=== PATIENT | female | born 1955 | race Caucasian/White ===

== ENCOUNTER 2020-11-22 06:05 | Inpatient (IN) | payer OTHER, MEDICAID, SELFPAY ==
[~2020-11-22] VITALS: Ht 157.5 cm; Wt 81.6 kg
[2020-11-22] MEDS ORDERED: CEFAZOLIN 2 GM IVPB PREMIX 50 ML IV ONE (07:00)
[2020-11-22] MEDS ORDERED: GLUXR500 PO (07:50)
[2020-11-22] MEDS ORDERED: VITD2000 PO (07:50)
[2020-11-22] MEDS ORDERED: SIMV40TA2 PO (07:50)
[2020-11-22] MEDS ORDERED: LR 1,000 ML IV SCH ×2 (13:30→14:15)
[2020-11-22] MEDS ORDERED: ONDANSETRON HCL 4 MG/2 ML VIAL IVP PRN ×2 (13:30→14:15)
[2020-11-22] MEDS ORDERED: HYDROmorphone 1 MG/ML INJ. CARTRIDGE IVP PRN ×2 (13:30)
[2020-11-22] MEDS ORDERED: KETOROLAC TROMETHAMINE 30 MG VIAL IVP PRN (13:30)
[2020-11-22] MEDS ORDERED: HYDROmorphone 2 MG/ML VIAL IVP PRN (13:30)
[2020-11-22] MEDS ORDERED: INSULIN REGULAR, HUMAN 100 UNITS/ML, 10 ML VIAL (humuLIN R) SUBCUT PRN (14:15)
[2020-11-22] MEDS ORDERED: ONDANSETRON 4 MG ODT TAB PO PRN (14:15)
[2020-11-22] MEDS ORDERED: GLUCOSE (DEXTROSE) ORAL GEL -Adults PO PRN (14:15)
[2020-11-22] MEDS ORDERED: DEXTROSE 50% JECT 50 ML DISP.SYRIN IVP PRN (14:15)
[2020-11-22] MEDS ORDERED: D5W 1,000 ML IV PRN (14:15)
[2020-11-22 14:21] LABS: HEMATOCRIT 35.7 % (36-48); HEMOGLOBIN 11.9 g/dL (12.0-16.0)
[2020-11-22 15:42] VITALS: BP_SYST 111
[2020-11-22] MEDS: HYDROcodone/ACETAMIN 5-325 MG TAB (NORCO/ VICODIN) PO PRN (16:48)
[2020-11-22] MEDS: KCL 20 mEq in D5/0.45NS 1000mL 1,000 ML IV SCH (17:51)
[2020-11-22 20:00] VITALS: BP_SYST 117
[2020-11-22] MEDS ORDERED: SIMVASTATIN 40 MG TABLET PO SCH (21:00)
[2020-11-22] MEDS: CALCIUM 500 MG/TAB PO SCH (21:27)
[2020-11-22 21:50] LABS: ALBUMIN 2.5 g/dL (3.4-4.8); CALCIUM 7.2 mg/dL (8.4-11.0); CREATININE 0.87 mg/dL (0.55-1.30); TOTAL BILIRUBIN 0.4 mg/dL (0.0-1.0)
[2020-11-23 00:19] VITALS: BP_SYST 114
[2020-11-23] MEDS: KCL 20 mEq in D5/0.45NS 1000mL 1,000 ML IV SCH (01:02)
[2020-11-23] MEDS ORDERED: LEVOTHYROXINE SODIUM 0.15 MG TABLET PO SCH (07:00)
[2020-11-23 07:34] LABS: ALBUMIN 2.5 g/dL (3.4-4.8); CALCIUM 7.7 mg/dL (8.4-11.0)
[2020-11-23 08:16] VITALS: BP_SYST 110
[2020-11-23] MEDS: CALCIUM 500 MG/TAB PO SCH (08:40)
[2020-11-23] MEDS ORDERED: CHOLECALCIFEROL (VITAMIN D3) 2,000 UNIT TABLET PO SCH (09:00)
[2020-11-23] MEDS: HYDROcodone/ACETAMIN 5-325 MG TAB (NORCO/ VICODIN) PO PRN (11:39)
[2020-11-23 12:00] VITALS: BP_SYST 124
[2020-11-23] MEDS ORDERED: NORMAL SALINE 5 ML DISP.SYRIN IVF SCH (14:00)
[2020-11-23 15:14] LABS: ALBUMIN 2.7 g/dL (3.4-4.8)
== END 2020-11-23 15:30 | disposition home or self-care (01) | DRG 627 ==
LOC: SMU 06:05 → SDS 06:05 → SMU 13:15 → SDS 15:35
PROVIDERS: ADMIT Otolaryngology; ATTEND Otolaryngology
PROC: 0GTK0ZZ Resection of Thyroid Gland, Open Approach (ICD-10-PCS; principal; 2020-11-22 08:00)
DX: E04.2 Nontoxic multinodular goiter (principal); Z20.822 Contact with and (suspected) exposure to COVID-19
CPT/HCPCS: 36415; 80053; 82040; 82310; 82962; 83051; 83970; 85014; 86886; 86900; 86901; 86920; 87081; 88307; J0690; J1170